=== PATIENT | female | born 1950 | race Caucasian/White ===

== ENCOUNTER 2017-11-05 16:39 | Emergency (ER) | END 2017-11-05 20:30 | disposition home or self-care (01) ==

== ENCOUNTER 2018-02-07 | Day surgery (SDC) | END 2018-02-07 11:40 | disposition home or self-care (01) ==

== ENCOUNTER → 2018-03-29 | Outpatient (CLI) | payer MEDICARE, OTHER ==
[~2018-03-29] MED LIST: AMLO5 PO; ATOR80 PO; BLOOD THINNER; CLOP75 PO; CODACE30 PO; EZET10 PO; LORA1 PO; MELO7.5 PO; NEBI10 PO; Neurontin300 MG PO; Norco 5-325 Ta1 EACH PO; ONDA4ODT MM; PANT40 PO; QUET25 PO; ROPI.25 PO; SERT100 PO; SERT50 PO; Vibramycin100 MG PO; ZESTORETIC 20-121 EA PO
== END ==
LOC: LAB 15:44 → LAB SHORT 15:44
DX: Z48.817 Encounter for surgical aftercare following surgery on the skin and subcutaneous tissue (principal); L08.9 Local infection of the skin and subcutaneous tissue, unspecified; L57.0 Actinic keratosis
CPT/HCPCS: 87070; 87186; 87205

== ENCOUNTER → 2018-05-26 | Outpatient (CLI) | payer MEDICARE, OTHER | LOC: LAB SHORT 13:40 → LAB 13:40 | DX: L08.9 Local infection of the skin and subcutaneous tissue, unspecified (principal) | CPT/HCPCS: 87070; 87205 ==

== ENCOUNTER → 2018-09-06 | Outpatient (CLI) | payer MEDICARE ==
[2018-09-06 09:03] LABS: BASOPHILS ABSOLUTE AUTO 0.06 K/mm3 (0.00-0.23); BASOPHILS PERCENT AUTO 1 % (0-2); EOSINOPHILS ABSOLUTE AUTO 0.17 K/mm3 (0.00-0.68); EOSINOPHILS PERCENT AUTO 2 % (0-6); Hematocrit 40.5 % (33.0-51.0); Hemoglobin 13.6 g/dL (11.5-16.0); IMMATURE GRAN ABSOLUTE AUTO 0.02 K/mm3 (0.00-0.10); IMMATURE GRAN PERCENT AUTO 0 % (0-1); LYMPHOCYTES ABSOLUTE AUTO 2.26 K/mm3 (0.84-5.20); LYMPHOCYTES PERCENT AUTO 33 % (21-46); MONOCYTES PERCENT AUTO 9 % (4-13); Mean Corpuscular HGB Conc 33.6 g/dL (31.5-36.5); Mean Corpuscular Volume 89 fL (80-100); Mean Platelet Volume 9.6 fL (9.1-12.4); NEUTROPHILS ABSOLUTE AUTO 3.84 K/mm3 (1.96-9.15); NEUTROPHILS PERCENT AUTO 55 % (41-73); Platelet Count 205 K/mm3 (150-400); RDW Coefficient Variation 14.4 % (11.7-14.2); RDW Standard Deviation 46.7 fL (35.1-46.3); Red Blood Cell Count 4.53 M/mm3 (3.80-5.20); White Blood Cell Count 6.95 K/mm3 (4.00-11.30)
[2018-09-06 09:16] LABS: Alanine Aminotransfer (ALT/SGP 34 U/L (12-78); Albumin, Blood 3.9 g/dL (3.4-5.0); Albumin/Globulin Ratio 0.9 (0.8-1.8); Alk Phos 97 U/L (40-126); Anion Gap 14 mmol/L (6-16); Aspartate Aminotrans (AST/SGOT 33 U/L (12-37); Bilirubin, Total 0.7 mg/dL (0.1-1.0); Blood Urea Nitrogen 17 mg/dL (8-24); Bun/Creatinine Ratio 15.7 (12.0-20.0); CO2, Blood 24 mmol/L (21-32); Calcium, Blood 9.6 mg/dL (8.5-10.1); Chloride, Blood 101 mmol/L (98-108); Creatinine, Blood 1.08 mg/dL (0.40-1.00); Globulin, Blood 4.2 g/dL (2.2-4.0); Glomerular Filtration Rate 50 (60-); Glucose, Blood 125 mg/dL (70-99); Potassium, Blood 3.7 mmol/L (3.5-5.5); Sodium, Blood 139 mmol/L (136-145); Total Protein, Blood 8.1 g/dL (6.4-8.2); Troponin I <0.017 ng/mL (0.000-0.040)
== END | disposition home or self-care (01) ==
LOC: LAB EV 08:58 → LAB SHORT 08:58
PROVIDERS: Physician Assistant
DX: R07.9 Chest pain, unspecified (principal)
CPT/HCPCS: 80053; 84484; 85025; 85379

== ENCOUNTER → 2018-09-07 | Outpatient (CLI) | payer MEDICARE | END | disposition home or self-care (01) | LOC: LAB SHORT 15:24 → LAB EV 15:24 | DX: R79.1 Abnormal coagulation profile (principal) | CPT/HCPCS: 85379 ==

== ENCOUNTER → 2020-03-11 | Outpatient (CLI) | payer MEDICARE | END | disposition home or self-care (01) | LOC: LAB 12:39 → LAB SHORT 12:39 | DX: E11.9 Type 2 diabetes mellitus without complications (principal) | CPT/HCPCS: 82043 ==

== ENCOUNTER → 2020-11-18 | Outpatient (CLI) | payer MEDICARE ==
[2020-11-18 16:43] LABS: U Amphetamine Screen Not Detected; U Barbituate Screen Not Detected; U Benzodiazapine Screen Not Detected; U Buprenorphine Screen Not Detected; U Cannabinoids Screen Not Detected; U Cocaine Screen Not Detected; U Methadone Screen Not Detected; U Methamphetamine Screen Not Detected; U Opiates Screen Not Detected; U Oxycodone Screen Not Detected; U Phencyclidine Screen Not Detected; U Propoxyphene Screen Not Detected
== END | disposition home or self-care (01) ==
LOC: LAB SHORT 13:10 → LAB 13:10
PROVIDERS: Physician Assistant Medical
DX: Z51.81 Encounter for therapeutic drug level monitoring (principal); Z79.891 Long term (current) use of opiate analgesic

== ENCOUNTER 2020-12-11 08:39 | Emergency (ER) | payer MEDICARE ==
[~2020-12-11] VITALS: Ht 162.6 cm; Wt 81.7 kg
[2020-12-11 09:33] LABS: BASOPHILS ABSOLUTE AUTO 0.05 K/mm3 (0.00-0.23); BASOPHILS PERCENT AUTO 1 % (0-2); EOSINOPHILS ABSOLUTE AUTO 0.33 K/mm3 (0.00-0.68); EOSINOPHILS PERCENT AUTO 5 % (0-6); Hematocrit 38.2 % (33.0-51.0); Hemoglobin 12.8 g/dL (11.5-16.0); IMMATURE GRAN ABSOLUTE AUTO 0.01 K/mm3 (0.00-0.10); IMMATURE GRAN PERCENT AUTO 0 % (0-1); LYMPHOCYTES ABSOLUTE AUTO 1.91 K/mm3 (0.84-5.20); LYMPHOCYTES PERCENT AUTO 31 % (21-46); MONOCYTES ABSOLUTE AUTO 0.68 K/mm3 (0.16-1.47); MONOCYTES PERCENT AUTO 11 % (4-13); Mean Corpuscular HGB 30.1 pg (26.0-34.0); Mean Corpuscular HGB Conc 33.5 g/dL (31.5-36.5); Mean Corpuscular Volume 90 fL (80-100); Mean Platelet Volume 9.5 fL (9.1-12.4); NEUTROPHILS ABSOLUTE AUTO 3.13 K/mm3 (1.96-9.15); NEUTROPHILS PERCENT AUTO 51 % (41-73); Platelet Count 190 K/mm3 (150-400); RDW Coefficient Variation 13.7 % (11.7-14.2); Red Blood Cell Count 4.25 M/mm3 (3.80-5.20); White Blood Cell Count 6.11 K/mm3 (4.00-11.30)
[2020-12-11 09:56] LABS: Alanine Aminotransfer (ALT/SGP 21 U/L (12-78); Albumin, Blood 3.9 g/dL (3.4-5.0); Albumin/Globulin Ratio 1.1 (0.8-1.8); Alk Phos 85 U/L (50-136); Anion Gap 6 mmol/L (6-16); Aspartate Aminotrans (AST/SGOT 24 U/L (12-37); Bilirubin, Total 0.5 mg/dL (0.1-1.0); Blood Urea Nitrogen 23 mg/dL (8-24); Bun/Creatinine Ratio 24.4 (12.0-20.0); CO2, Blood 27 mmol/L (21-32); Chloride, Blood 102 mmol/L (98-108); Creatinine, Blood 0.94 mg/dL (0.40-1.00); Globulin, Blood 3.7 g/dL (2.2-4.0); Glomerular Filtration Rate >60 (60-); Glucose, Blood 104 mg/dL (70-99); Potassium, Blood 4.2 mmol/L (3.5-5.5); Sodium, Blood 135 mmol/L (136-145); Total Protein, Blood 7.6 g/dL (6.4-8.2); Troponin I <0.015 ng/mL (0.000-0.040)
== END 2020-12-11 10:40 | disposition home or self-care (01) ==
LOC: ER 08:39
PROVIDERS: Emergency Medicine
DX: R07.9 Chest pain, unspecified (principal); Z88.1 Allergy status to other antibiotic agents; Z79.899 Other long term (current) drug therapy
CPT/HCPCS: 36415; 80053; 84484; 85025; 93005; 93010; 99284-25

== ENCOUNTER 2021-03-31 04:16 | Day surgery (SDC) | payer MEDICARE | END 2021-03-31 23:50 | disposition home or self-care (01) | LOC: WOUND 04:16 | DX: S81.801A Unspecified open wound, right lower leg, initial encounter (principal); X58.XXXD Exposure to other specified factors, subsequent encounter; L97.212 Non-pressure chronic ulcer of right calf with fat layer exposed; G90.09 Other idiopathic peripheral autonomic neuropathy; H35.30 Unspecified macular degeneration; Z87.891 Personal history of nicotine dependence | CPT/HCPCS: A9270 ==

== ENCOUNTER 2021-04-07 13:14 | Day surgery (SDC) | payer MEDICARE | END 2021-04-07 22:44 | disposition home or self-care (01) | LOC: WOUND 13:14 | DX: S81.801D Unspecified open wound, right lower leg, subsequent encounter (principal); W10.9XXD Fall (on) (from) unspecified stairs and steps, subsequent encounter; L03.115 Cellulitis of right lower limb; G90.09 Other idiopathic peripheral autonomic neuropathy; H35.30 Unspecified macular degeneration | CPT/HCPCS: A9270 ==

== ENCOUNTER 2021-04-14 04:13 | Day surgery (SDC) | payer MEDICARE | END 2021-04-14 22:45 | disposition home or self-care (01) | LOC: WOUND 04:13 | DX: S81.801D Unspecified open wound, right lower leg, subsequent encounter (principal); X58.XXXD Exposure to other specified factors, subsequent encounter; G90.09 Other idiopathic peripheral autonomic neuropathy; H35.30 Unspecified macular degeneration ==

== ENCOUNTER 2021-04-27 02:44 | Day surgery (SDC) | payer MEDICARE | END 2021-04-27 23:54 | disposition home or self-care (01) | LOC: WOUND 02:44 | DX: S81.801D Unspecified open wound, right lower leg, subsequent encounter (principal); X58.XXXD Exposure to other specified factors, subsequent encounter; G90.09 Other idiopathic peripheral autonomic neuropathy; H35.30 Unspecified macular degeneration | CPT/HCPCS: A9270 ==

== ENCOUNTER 2021-04-30 04:12 | Day surgery (SDC) | payer MEDICARE | END 2021-04-30 23:25 | disposition home or self-care (01) | LOC: WOUND 04:12 | DX: S81.801A Unspecified open wound, right lower leg, initial encounter (principal) ==

== ENCOUNTER 2021-05-04 02:21 | Day surgery (SDC) | payer MEDICARE | END 2021-05-04 23:16 | disposition home or self-care (01) | LOC: WOUND 02:21 | DX: S81.801A Unspecified open wound, right lower leg, initial encounter (principal); H35.30 Unspecified macular degeneration; G90.09 Other idiopathic peripheral autonomic neuropathy; W10.9XXA Fall (on) (from) unspecified stairs and steps, initial encounter | CPT/HCPCS: A9270 ==

== ENCOUNTER 2021-05-07 02:03 | Day surgery (SDC) | payer MEDICARE | END 2021-05-07 23:16 | disposition home or self-care (01) | LOC: WOUND 02:03 | DX: S81.801A Unspecified open wound, right lower leg, initial encounter (principal); G90.09 Other idiopathic peripheral autonomic neuropathy; H35.30 Unspecified macular degeneration; X58.XXXA Exposure to other specified factors, initial encounter ==

== ENCOUNTER 2021-05-11 02:58 | Day surgery (SDC) | payer MEDICARE | END 2021-05-11 22:58 | disposition home or self-care (01) | LOC: WOUND 02:58 | DX: S81.801A Unspecified open wound, right lower leg, initial encounter (principal); H35.30 Unspecified macular degeneration; G90.09 Other idiopathic peripheral autonomic neuropathy; W10.9XXA Fall (on) (from) unspecified stairs and steps, initial encounter; Z91.81 History of falling | CPT/HCPCS: A9270 ==

== ENCOUNTER 2021-05-19 02:38 | Day surgery (SDC) | payer MEDICARE | END 2021-05-19 22:55 | disposition home or self-care (01) | LOC: WOUND 02:38 | DX: S81.801A Unspecified open wound, right lower leg, initial encounter (principal); G90.09 Other idiopathic peripheral autonomic neuropathy; H35.30 Unspecified macular degeneration; W10.9XXA Fall (on) (from) unspecified stairs and steps, initial encounter | CPT/HCPCS: A9270 ==

== ENCOUNTER 2021-05-28 03:08 | Day surgery (SDC) | payer MEDICARE | END 2021-05-28 23:11 | disposition home or self-care (01) | LOC: WOUND 03:08 | DX: S81.801D Unspecified open wound, right lower leg, subsequent encounter (principal); X58.XXXD Exposure to other specified factors, subsequent encounter; G90.09 Other idiopathic peripheral autonomic neuropathy; H35.30 Unspecified macular degeneration | CPT/HCPCS: A9270 ==

== ENCOUNTER 2021-06-04 01:09 | Day surgery (SDC) | payer MEDICARE | END 2021-06-04 23:01 | disposition home or self-care (01) | LOC: WOUND 01:09 | DX: S81.801A Unspecified open wound, right lower leg, initial encounter (principal); W10.9XXA Fall (on) (from) unspecified stairs and steps, initial encounter; L97.812 Non-pressure chronic ulcer of other part of right lower leg with fat layer exposed; G90.09 Other idiopathic peripheral autonomic neuropathy; H35.30 Unspecified macular degeneration; I87.2 Venous insufficiency (chronic) (peripheral) | CPT/HCPCS: A9270 ==

== ENCOUNTER 2021-06-10 02:54 | Day surgery (SDC) | payer MEDICARE | END 2021-06-10 22:45 | disposition home or self-care (01) | LOC: WOUND 02:54 | DX: L97.812 Non-pressure chronic ulcer of other part of right lower leg with fat layer exposed (principal); G90.09 Other idiopathic peripheral autonomic neuropathy; H35.30 Unspecified macular degeneration; I87.2 Venous insufficiency (chronic) (peripheral) | CPT/HCPCS: A9270 ==

== ENCOUNTER 2021-06-18 02:07 | Day surgery (SDC) | payer MEDICARE | END 2021-06-18 23:56 | disposition home or self-care (01) | LOC: WOUND 02:07 | DX: L97.812 Non-pressure chronic ulcer of other part of right lower leg with fat layer exposed (principal); G90.09 Other idiopathic peripheral autonomic neuropathy; H35.30 Unspecified macular degeneration; I87.2 Venous insufficiency (chronic) (peripheral) | CPT/HCPCS: A9270 ==

== ENCOUNTER 2021-06-25 00:59 | Day surgery (SDC) | payer MEDICARE | END 2021-06-25 22:55 | disposition home or self-care (01) | LOC: WOUND 00:59 | PROC: 2W1QX7Z Compression of Right Lower Leg using Intermittent Pressure Device (ICD-10-PCS; principal; 2021-06-25) | DX: L97.812 Non-pressure chronic ulcer of other part of right lower leg with fat layer exposed (principal); S91.301A Unspecified open wound, right foot, initial encounter; G90.09 Other idiopathic peripheral autonomic neuropathy; H35.30 Unspecified macular degeneration; I87.2 Venous insufficiency (chronic) (peripheral); W10.8XXA Fall (on) (from) other stairs and steps, initial encounter | CPT/HCPCS: A9270 ==

== ENCOUNTER 2021-07-02 00:52 | Day surgery (SDC) | payer MEDICARE | END 2021-07-02 23:18 | disposition home or self-care (01) | LOC: WOUND 00:52 | DX: L97.812 Non-pressure chronic ulcer of other part of right lower leg with fat layer exposed (principal); I87.2 Venous insufficiency (chronic) (peripheral); G90.09 Other idiopathic peripheral autonomic neuropathy | CPT/HCPCS: A9270 ==

== ENCOUNTER 2021-07-09 01:32 | Day surgery (SDC) | payer MEDICARE | END 2021-07-09 23:03 | disposition home or self-care (01) | LOC: WOUND 01:32 | DX: L97.812 Non-pressure chronic ulcer of other part of right lower leg with fat layer exposed (principal); G90.09 Other idiopathic peripheral autonomic neuropathy; H35.30 Unspecified macular degeneration; I87.2 Venous insufficiency (chronic) (peripheral) | CPT/HCPCS: A9270 ==

== ENCOUNTER 2021-07-21 01:29 | Day surgery (SDC) | payer MEDICARE | END 2021-07-21 22:41 | disposition home or self-care (01) | LOC: WOUND 01:29 | DX: L97.812 Non-pressure chronic ulcer of other part of right lower leg with fat layer exposed (principal); G90.09 Other idiopathic peripheral autonomic neuropathy; H35.30 Unspecified macular degeneration; I87.2 Venous insufficiency (chronic) (peripheral) | CPT/HCPCS: A9270; G0463 ==

== ENCOUNTER 2021-09-17 09:00 | Day surgery (SDC) | payer MEDICARE ==
[~2021-09-17] VITALS: Ht 160 cm; Wt 84.0 kg
[2021-09-17] MEDS ORDERED: ASPIR 8181 M1 (09:23)
--- NOTE | 2021-09-17 10:17 | NUR ---
09/17/21 1017 Didier Barahona LIDOCAINE 4% BREATHING TX STARTED PER ORDER. AND INFORMED OF ELEVATED BLOO PRESSURES
--- NOTE | 2021-09-17 11:18 | NUR ---
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
== END 2021-09-17 11:18 | disposition home or self-care (01) ==
LOC: ORSCSDS 09:00
PROVIDERS: Student in an Organized Health Care Education/Training Program
PROC: 0DB58ZX Excision of Esophagus, Via Natural or Artificial Opening Endoscopic, Diagnostic (ICD-10-PCS; principal; 2021-09-17 10:15)
PROC: 0D758ZZ Dilation of Esophagus, Via Natural or Artificial Opening Endoscopic (ICD-10-PCS; principal; 2021-09-17 10:15)
DX: K21.9 Gastro-esophageal reflux disease without esophagitis (principal); R13.10 Dysphagia, unspecified; K29.70 Gastritis, unspecified, without bleeding; K22.2 Esophageal obstruction; K44.9 Diaphragmatic hernia without obstruction or gangrene; Z87.891 Personal history of nicotine dependence; Z79.899 Other long term (current) drug therapy; Z79.82 Long term (current) use of aspirin
CPT/HCPCS: 88305; 88342; C1726; J2001; J2250; J2704; J7120

== ENCOUNTER → 2022-11-05 | Outpatient (CLI) | payer MEDICARE ==
[~2022-11-05] MED LIST changes: +ASPIR 8181 M1
[2022-11-05 13:37] LABS: BASOPHILS ABSOLUTE AUTO 0.05 K/mm3 (0.00-0.23); BASOPHILS PERCENT AUTO 1 % (0-2); EOSINOPHILS ABSOLUTE AUTO 0.29 K/mm3 (0.00-0.68); EOSINOPHILS PERCENT AUTO 4 % (0-6); Hematocrit 36.6 % (33.0-51.0); Hemoglobin 12.4 g/dL (11.5-16.0); IMMATURE GRAN ABSOLUTE AUTO 0.01 K/mm3 (0.00-0.10); IMMATURE GRAN PERCENT AUTO 0 % (0-1); LYMPHOCYTES ABSOLUTE AUTO 2.91 K/mm3 (0.84-5.20); LYMPHOCYTES PERCENT AUTO 38 % (21-46); MONOCYTES ABSOLUTE AUTO 0.69 K/mm3 (0.16-1.47); MONOCYTES PERCENT AUTO 9 % (4-13); Mean Corpuscular HGB 30.5 pg (26.0-34.0); Mean Corpuscular HGB Conc 33.9 g/dL (31.5-36.5); Mean Corpuscular Volume 90 fL (80-100); Mean Platelet Volume 10.3 fL (9.1-12.4); NEUTROPHILS ABSOLUTE AUTO 3.81 K/mm3 (1.96-9.15); NEUTROPHILS PERCENT AUTO 49 % (41-73); Platelet Count 163 K/mm3 (150-400); RDW Coefficient Variation 14.3 % (11.7-14.2); Red Blood Cell Count 4.07 M/mm3 (3.80-5.20); White Blood Cell Count 7.76 K/mm3 (4.00-11.30)
[2022-11-05 13:55] LABS: Prothrombin Time Results 10.5 Sec (9.7-11.5)
[2022-11-05 14:24] LABS: Albumin, Blood 3.7 g/dL (3.4-5.0); Albumin/Globulin Ratio 1.1 (0.8-1.8); Bilirubin, Total 0.6 mg/dL (0.1-1.0); Bun/Creatinine Ratio 21.6 (12.0-20.0); Creatinine, Blood 0.97 mg/dL (0.40-1.00); Globulin, Blood 3.4 g/dL (2.2-4.0); Potassium, Blood 4.4 mmol/L (3.5-5.5); Total Protein, Blood 7.1 g/dL (6.4-8.2)
== END | disposition home or self-care (01) ==
LOC: LAB SHORT 13:24
PROVIDERS: Nurse Practitioner Family
DX: M79.622 Pain in left upper arm (principal); R22.32 Localized swelling, mass and lump, left upper limb; R23.3 Spontaneous ecchymoses
CPT/HCPCS: 80053; 85025; 85610; 85730

== ENCOUNTER → 2023-02-01 | Outpatient (CLI) | payer MEDICARE | END | disposition home or self-care (01) | LOC: LAB 10:16 → LAB SHORT 10:16 | DX: R30.0 Dysuria (principal) | CPT/HCPCS: 87086 ==

== ENCOUNTER 2023-03-23 02:31 | Day surgery (SDC) | payer MEDICARE | END 2023-03-23 22:42 | disposition home or self-care (01) | LOC: WOUND 02:31 | DX: L97.812 Non-pressure chronic ulcer of other part of right lower leg with fat layer exposed (principal); L03.115 Cellulitis of right lower limb; I73.9 Peripheral vascular disease, unspecified; I87.2 Venous insufficiency (chronic) (peripheral) | CPT/HCPCS: A9270; G0463 ==

== ENCOUNTER 2023-03-30 04:03 | Day surgery (SDC) | payer MEDICARE | END 2023-03-30 22:44 | disposition home or self-care (01) | LOC: WOUND 04:03 | DX: L03.115 Cellulitis of right lower limb (principal); L97.812 Non-pressure chronic ulcer of other part of right lower leg with fat layer exposed; I87.2 Venous insufficiency (chronic) (peripheral); G62.9 Polyneuropathy, unspecified | CPT/HCPCS: A9270; G0463 ==

== ENCOUNTER 2023-04-06 01:18 | Day surgery (SDC) | payer MEDICARE | END 2023-04-06 23:08 | disposition home or self-care (01) | LOC: WOUND 01:18 | DX: L03.115 Cellulitis of right lower limb (principal); I73.9 Peripheral vascular disease, unspecified; I87.2 Venous insufficiency (chronic) (peripheral); L97.818 Non-pressure chronic ulcer of other part of right lower leg with other specified severity | CPT/HCPCS: A9270 ==

== ENCOUNTER 2023-04-08 02:50 | Day surgery (SDC) | payer MEDICARE | END 2023-04-08 22:41 | disposition home or self-care (01) | LOC: WOUND 02:50 | DX: Z48.00 Encounter for change or removal of nonsurgical wound dressing (principal) ==

== ENCOUNTER 2023-04-13 02:11 | Day surgery (SDC) | payer MEDICARE | END 2023-04-13 22:35 | disposition home or self-care (01) | LOC: WOUND 02:11 | DX: L97.812 Non-pressure chronic ulcer of other part of right lower leg with fat layer exposed (principal); I73.9 Peripheral vascular disease, unspecified; I87.2 Venous insufficiency (chronic) (peripheral); L03.115 Cellulitis of right lower limb | CPT/HCPCS: A9270 ==

== ENCOUNTER 2023-04-20 02:18 | Day surgery (SDC) | payer MEDICARE | END 2023-04-20 22:42 | disposition home or self-care (01) | LOC: WOUND 02:18 | DX: L03.115 Cellulitis of right lower limb (principal); I73.9 Peripheral vascular disease, unspecified; I87.2 Venous insufficiency (chronic) (peripheral); L97.822 Non-pressure chronic ulcer of other part of left lower leg with fat layer exposed ==

== ENCOUNTER 2023-04-27 05:40 | Day surgery (SDC) | payer MEDICARE | END 2023-04-27 22:40 | disposition home or self-care (01) | LOC: WOUND 05:40 | DX: L03.115 Cellulitis of right lower limb (principal); L97.812 Non-pressure chronic ulcer of other part of right lower leg with fat layer exposed; I87.2 Venous insufficiency (chronic) (peripheral); I73.9 Peripheral vascular disease, unspecified | CPT/HCPCS: A9270 ==

== ENCOUNTER 2023-05-04 02:43 | Day surgery (SDC) | payer MEDICARE | END 2023-05-04 22:41 | disposition home or self-care (01) | LOC: WOUND 02:43 | DX: L03.115 Cellulitis of right lower limb (principal); L97.812 Non-pressure chronic ulcer of other part of right lower leg with fat layer exposed; I73.9 Peripheral vascular disease, unspecified; I87.2 Venous insufficiency (chronic) (peripheral); L97.818 Non-pressure chronic ulcer of other part of right lower leg with other specified severity | CPT/HCPCS: A9270; G0463 ==

== ENCOUNTER 2023-05-11 01:14 | Day surgery (SDC) | payer MEDICARE | END 2023-05-11 22:44 | disposition home or self-care (01) | LOC: WOUND 01:14 | DX: L97.812 Non-pressure chronic ulcer of other part of right lower leg with fat layer exposed (principal); L03.115 Cellulitis of right lower limb; I73.9 Peripheral vascular disease, unspecified; I87.2 Venous insufficiency (chronic) (peripheral) | CPT/HCPCS: A9270; G0463 ==

== ENCOUNTER 2023-05-18 00:55 | Day surgery (SDC) | payer MEDICARE | END 2023-05-18 22:49 | disposition home or self-care (01) | LOC: WOUND 00:55 | DX: L03.115 Cellulitis of right lower limb (principal); L97.812 Non-pressure chronic ulcer of other part of right lower leg with fat layer exposed; I87.2 Venous insufficiency (chronic) (peripheral); I73.9 Peripheral vascular disease, unspecified | CPT/HCPCS: G0463 ==

== ENCOUNTER 2023-05-25 04:35 | Day surgery (SDC) | payer MEDICARE | END 2023-05-25 22:49 | disposition home or self-care (01) | LOC: WOUND 04:35 | DX: L97.818 Non-pressure chronic ulcer of other part of right lower leg with other specified severity (principal); L03.115 Cellulitis of right lower limb; I73.9 Peripheral vascular disease, unspecified; I87.2 Venous insufficiency (chronic) (peripheral); G62.9 Polyneuropathy, unspecified | CPT/HCPCS: G0463 ==

== ENCOUNTER 2023-06-16 08:00 | Day surgery (SDC) | payer MEDICARE | END 2023-06-16 23:59 | disposition home or self-care (01) | LOC: WOUND 08:00 | DX: T24.211D Burn of second degree of right thigh, subsequent encounter (principal); T24.111 Burn of first degree of right thigh; I87.2 Venous insufficiency (chronic) (peripheral); X08.8XXD Exposure to other specified smoke, fire and flames, subsequent encounter ==

== ENCOUNTER 2023-06-23 01:39 | Day surgery (SDC) | payer MEDICARE | END 2023-06-23 23:27 | disposition home or self-care (01) | LOC: WOUND 01:39 | DX: T24.211A Burn of second degree of right thigh, initial encounter (principal); T24.111A Burn of first degree of right thigh, initial encounter; X08.8XXA Exposure to other specified smoke, fire and flames, initial encounter; I87.2 Venous insufficiency (chronic) (peripheral) | CPT/HCPCS: G0463 ==

== ENCOUNTER 2023-06-30 03:22 | Day surgery (SDC) | payer MEDICARE | END 2023-06-30 22:38 | disposition home or self-care (01) | LOC: WOUND 03:22 | DX: I87.2 Venous insufficiency (chronic) (peripheral) (principal) | CPT/HCPCS: G0463 ==

== ENCOUNTER → 2024-10-01 | Outpatient (CLI) | payer OTHER ==
[~2024-10-01] MED LIST changes: +GABA300 PO; +Prinivil10 MG PO
[2024-10-01 14:51] LABS: Creatinine, Urine Random 52.2 mg/dL (27.00-270.00); Microalb/Creat Ratio UR, Rand 11.82 mg/g (0.000-30.000); Microalbumin, Random Urine 6.17 mg/L (0.000-20.000)
== END ==
LOC: LAB SHORT 11:09 → LAB 11:09 → LAB FUT 09-21 12:05
PROVIDERS: Physician Assistant
DX: E11.21 Type 2 diabetes mellitus with diabetic nephropathy (principal)
CPT/HCPCS: 82043; 82570